=== PATIENT | male | born 1995 | race Hispanic/Latino ===

== ENCOUNTER 2018-11-19 11:59 | Emergency (ER) | payer OTHER, SELFPAY ==
[2018-11-19 12:13] VITALS: BP 115/83; PULSE 99; RESP 18; TEMP 37.2; O2SAT 96; BMI 29.8
--- NOTE | 2018-11-19 12:14 | ED.LOWEXIN ---
HPI - Extremity Injury (Lower) <NIKI Redd - Last Filed: 11/19/18 21:59> General Chief Complaint: Extremity Injury, Lower Stated Complaint: STABBED FT WITH MEDAL WHILE RUNNING Time Seen by Provider: 11/19/18 12:14 Source: patient Mode of arrival: ambulatory Limitations: no limitations History of Present Illness HPI Narrative: 23-year-old healthy male that is a nonsmoker here for complaint of puncture wound to his right foot. He states that he was running earlier today when he stepped on a plane a piece of metal that punctured the bottom of his shoe going into the ball of his right foot plantar aspect. He states he came in to get his tetanus updated. He does not believe that there are any foreign bodies to the area. He pulled the metal out and cleaned the wound well prior to arrival. Incident happened just prior to arrival. He is ambulatory into the emergency room. He does not know exactly when his last tetanus was. No other concerns or complaints at this timeframe. MD complaint: foot injury Related Data Previous Rx's Medication Instructions Recorded cephalexin 500 mg PO QID #20 tab 11/19/18 levofloxacin 500 mg PO DAILY #5 tab 11/19/18 Allergies Allergy/AdvReac Type Severity Reaction Status Date / Time No Known Drug Allergies Allergy Verified 11/19/18 12:16 Review of Systems <NIKI Redd - Last Filed: 11/19/18 21:59> Constitutional Denies chills, Denies fever(s), Denies lethargy and Denies weakness Eyes Denies change in vision, Denies eye discharge, Denies irritation and Denies loss of vision ENT Ears, Nose, Mouth, and Throat: Denies change in voice, Denies neck pain and Denies sore throat Cardiovascular Denies chest pain, Denies irregular heart rhythm, Denies lightheadedness, Denies palpitations, Denies dyspnea, Denies dyspnea on exertion and Denies orthopnea Respiratory Denies cough, Denies dyspnea, Denies dyspnea on exertion and Denies wheezing Gastrointestinal Gastrointestinal: Denies abdominal pain, Denies change in bowel habits, Denies diarrhea, Denies nausea and Denies vomiting Genitourinary Denies hematuria, Denies flank pain, Denies urinary incontinence and Denies urinary urgency Musculoskeletal Denies neck pain Comments: Puncture wound to right foot Integumentary/Breasts Denies pruritus, Denies erythema, Denies rash and Denies wounds Neurologic Denies confusion, Denies loss of vision and Denies weakness Psychiatric Denies anxiety, Denies confusion, Denies depression, Denies homicidal ideation and Denies suicidal ideation Endocrine Denies palpitations Allergic/Immunologic Denies wheezing PFSH <NIKI Redd - Last Filed: 11/19/18 21:59> Social History Smoking Status: Current some day smoker Social History Smoking Status: Current some day smoker Exam <NIKI Redd - Last Filed: 11/19/18 21:59> Initial Vital Signs Initial Vital Signs: Vital Signs Temperature 99.0 F 11/19/18 12:13 Pulse Rate 99 H 11/19/18 12:13 Respiratory Rate 18 11/19/18 12:13 Blood Pressure 115/83 11/19/18 12:13 Pulse Oximetry 96 11/19/18 12:13 Const General: cooperative and well developed Nutritional Appearance: well nourished Orientation: alert, awake, oriented x3 and not confused [facility] Mouth: oral mucosae normal and moist mucous membranes Eyes Conjunctivae: conjunctivae normal Sclera: sclerae normal Pupils: PERRL EOM: EOM intact bilaterally Resp Effort & Inspection: normal respiratory effort, able to speak in complete sentences, no respiratory distress and no use of accessory muscles Auscultation: clear to auscultation bilaterally, no rales, no rhonchi and no wheezes Cardio Rate: regular rate Rhythm: regular rhythm Heart Sounds: no click, no gallops, no murmurs and no rubs Skin General: no rashes or lesions noted, No jaundice and No petechiae Neuro General: alert, oriented x3, gait normal and no focal motor deficits Speech: speech normal Extrem Other: 5 mm puncture wound to the ball of the right foot. Distal sensation is intact. Distal cap refill is intact. Full range of motion. No foreign bodies is appreciated on exam. <Thang Matute DO - Last Filed: 11/20/18 07:23> Initial Vital Signs Initial Vital Signs: Vital Signs Temperature 99.0 F 11/19/18 12:13 Pulse Rate 99 H 11/19/18 12:13 Respiratory Rate 18 11/19/18 12:13 Blood Pressure 115/83 11/19/18 12:13 Pulse Oximetry 96 11/19/18 12:13 Course <NIKI Redd - Last Filed: 11/19/18 21:59> Orders Ordered: Discontinued Medications Diphtheria/Tetanus/Acell Pertussis (Adacel) 0.5 ml IM .ONCE ONE Stop: 11/19/18 12:14 Last Admin: 11/19/18 12:19 Dose: 0.5 ml Vital Signs - 8 hr 11/19/18 12:13 Temperature 99.0 F Pulse Rate 99 H Respiratory Rate 18 Blood Pressure 115/83 Pulse Oximetry 96 <Thang Matute DO - Last Filed: 11/20/18 07:23> Orders Ordered: Discontinued Medications Diphtheria/Tetanus/Acell Pertussis (Adacel) 0.5 ml IM .ONCE ONE Stop: 11/19/18 12:14 Last Admin: 11/19/18 12:19 Dose: 0.5 ml Vital Signs - 8 hr 11/19/18 12:13 Temperature 99.0 F Pulse Rate 99 H Respiratory Rate 18 Blood Pressure 115/83 Pulse Oximetry 96 MDM - Extremity Injury (Lower) <NIKI Redd - Last Filed: 11/19/18 21:59> Imaging Data R foot: Radiologist's impression: [place] [address] XRay Report Signed Patient: [facility]#: [id number] : 1995Acct:[id number] Age/Sex: 23 / MDate of Service: 11/19/18 Loc: ED Accession Number: [id number] Procedure: XR foot RT min 3V Ordering Provider: Bon Garcia PROCEDURE: XR FOOT RT MIN 3V INDICATIONS: Through the shoe puncture wound to right ft TECHNIQUE: 3 views of the foot were acquired. COMPARISON: None. FINDINGS: Bones: No fractures or dislocations. No suspicious bony lesions. Soft tissues: No tibiotalar joint effusion. Achilles tendon appears normal. No radiodense foreign bodies. IMPRESSION: No fracture. No osseous lesion. If symptoms and/or clinical suspicion for pathology persists, further assessment with repeat radiographs (7-10 days) or advanced imaging (e.g. CT, MRI or bone scan) may be helpful. Dictated by: Sapna Zapata MD, PhD on 11/19/2018 at 12:52 Approved by: Sapna Zapata MD, PhD on 11/19/2018 at 12:53 [facility] Narrative Medical decision making narrative: X-ray the right foot was obtained and was negative for any osseous findings or any foreign bodies. Tetanus was updated in the emergency room. Wound area was cleansed well with soap and water. Wound dressed with bacitracin and a dressing. Due to puncture wound through shoe will treat empirically to prevent infection including Pseudomonas with cephalexin and also Levaquin. [id number] Tylenol or Motrin as needed for any discomfort. Follow up with primary care provider. Return emergency room for any worsening symptoms. Discharge Plan Departure Patient Disposition: Home Clinical Impression: Puncture wound of foot Qualifiers: Encounter type: initial encounter Laterality: right Qualified Code(s): S91.331A - Puncture wound without foreign body, right foot, initial encounter Discharge Date/Time: 11/19/18 13:16 Interventions: ED Discharge Assessment Last Done: 11/19/18 13:15 Instructions: DI for Puncture Wound Activity Restrictions/Additional Instructions: tetanus was updated in the emergency room today. X-ray the right foot was obtained was negative for any acute findings. Dress wound daily with bacitracin dressing until healed. Use [id number] Tylenol or Motrin as needed for any discomfort. you are placed on antibiotics to prevent infection due to the puncture wound use as directed. Follow up with primary care provider. For any worsening symptoms or signs of infection return to the emergency room. Prescriptions: New cephalexin 500 mg tablet 500 mg PO QID Qty: 20 RF: 0 levofloxacin 500 mg tablet 500 mg PO DAILY Qty: 5 RF: 0 Referrals: Cara Valerio MD [Primary Care Provider] - <Thang Matute DO - Last Filed: 11/20/18 07:23> Cosign ED Attending Nury Attestation: I was immediately available in the department for consultation. Documentation has been reviewed. I agree with assessment and plan.
--- NOTE | 2018-11-19 12:18 | ED_ITS ---
HPI - Extremity Injury (Lower) <NIKI Redd - Last Filed: 11/19/18 21:59> General Chief Complaint: Extremity Injury, Lower Stated Complaint: STABBED FT WITH MEDAL WHILE RUNNING Time Seen by Provider: 11/19/18 12:14 Source: patient Mode of arrival: ambulatory Limitations: no limitations History of Present Illness HPI Narrative: 23-year-old healthy male that is a nonsmoker here for complaint of puncture wound to his right foot. He states that he was running earlier today when he stepped on a plane a piece of metal that punctured the bottom of his shoe going into the ball of his right foot plantar aspect. He states he came in to get his tetanus updated. He does not believe that there are any foreign bodies to the area. He pulled the metal out and cleaned the wound well prior to arrival. Incident happened just prior to arrival. He is ambulatory into the emergency room. He does not know exactly when his last tetanus was. No other concerns or complaints at this timeframe. MD complaint: foot injury Related Data Previous Rx's Medication Instructions Recorded cephalexin 500 mg PO QID #20 tab 11/19/18 levofloxacin 500 mg PO DAILY #5 tab 11/19/18 Allergies Allergy/AdvReac Type Severity Reaction Status Date / Time No Known Drug Allergies Allergy Verified 11/19/18 12:16 Review of Systems <NIKI Redd - Last Filed: 11/19/18 21:59> Constitutional Denies chills, Denies fever(s), Denies lethargy and Denies weakness Eyes Denies change in vision, Denies eye discharge, Denies irritation and Denies loss of vision ENT Ears, Nose, Mouth, and Throat: Denies change in voice, Denies neck pain and Denies sore throat Cardiovascular Denies chest pain, Denies irregular heart rhythm, Denies lightheadedness, Denies palpitations, Denies dyspnea, Denies dyspnea on exertion and Denies orthopnea Respiratory Denies cough, Denies dyspnea, Denies dyspnea on exertion and Denies wheezing Gastrointestinal Gastrointestinal: Denies abdominal pain, Denies change in bowel habits, Denies diarrhea, Denies nausea and Denies vomiting Genitourinary Denies hematuria, Denies flank pain, Denies urinary incontinence and Denies urinary urgency Musculoskeletal Denies neck pain Comments: Puncture wound to right foot Integumentary/Breasts Denies pruritus, Denies erythema, Denies rash and Denies wounds Neurologic Denies confusion, Denies loss of vision and Denies weakness Psychiatric Denies anxiety, Denies confusion, Denies depression, Denies homicidal ideation and Denies suicidal ideation Endocrine Denies palpitations Allergic/Immunologic Denies wheezing PFSH <NIKI Redd - Last Filed: 11/19/18 21:59> Social History Smoking Status: Current some day smoker Social History Smoking Status: Current some day smoker Exam <NIKI Redd - Last Filed: 11/19/18 21:59> Initial Vital Signs Initial Vital Signs: Vital Signs Temperature 99.0 F 11/19/18 12:13 Pulse Rate 99 H 11/19/18 12:13 Respiratory Rate 18 11/19/18 12:13 Blood Pressure 115/83 11/19/18 12:13 Pulse Oximetry 96 11/19/18 12:13 Const General: cooperative and well developed Nutritional Appearance: well nourished Orientation: alert, awake, oriented x3 and not confused [facility] Mouth: oral mucosae normal and moist mucous membranes Eyes Conjunctivae: conjunctivae normal Sclera: sclerae normal Pupils: PERRL EOM: EOM intact bilaterally Resp Effort & Inspection: normal respiratory effort, able to speak in complete sentences, no respiratory distress and no use of accessory muscles Auscultation: clear to auscultation bilaterally, no rales, no rhonchi and no wh eezes Cardio Rate: regular rate Rhythm: regular rhythm Heart Sounds: no click, no gallops, no murmurs and no rubs Skin General: no rashes or lesions noted, No jaundice and No petechiae Neuro General: alert, oriented x3, gait normal and no focal motor deficits Speech: speech normal Extrem Other: 5 mm puncture wound to the ball of the right foot. Distal sensation is intact. Distal cap refill is intact. Full range of motion. No foreign bodies is appreciated on exam. <Thang Matute DO - Last Filed: 11/20/18 07:23> Initial Vital Signs Initial Vital Signs: Vital Signs Temperature 99.0 F 11/19/18 12:13 Pulse Rate 99 H 11/19/18 12:13 Respiratory Rate 18 11/19/18 12:13 Blood Pressure 115/83 11/19/18 12:13 Pulse Oximetry 96 11/19/18 12:13 Course <NIKI Redd - Last Filed: 11/19/18 21:59> Orders Ordered: Discontinued Medications Diphtheria/Tetanus/Acell Pertussis (Adacel) 0.5 ml IM .ONCE ONE Stop: 11/19/18 12:14 Last Admin: 11/19/18 12:19 Dose: 0.5 ml Vital Signs - 8 hr 11/19/18 12:13 Temperature 99.0 F Pulse Rate 99 H Respiratory Rate 18 Blood Pressure 115/83 Pulse Oximetry 96 <Thang Matute DO - Last Filed: 11/20/18 07:23> Orders Ordered: Discontinued Medications Diphtheria/Tetanus/Acell Pertussis (Adacel) 0.5 ml IM .ONCE ONE Stop: 11/19/18 12:14 Last Admin: 11/19/18 12:19 Dose: 0.5 ml Vital Signs - 8 hr 11/19/18 12:13 Temperature 99.0 F Pulse Rate 99 H Respiratory Rate 18 Blood Pressure 115/83 Pulse Oximetry 96 MDM - Extremity Injury (Lower) <NIKI Redd - Last Filed: 11/19/18 21:59> Imaging Data R foot: Radiologist's impression: [place] [address] XRay Report Signed Patient: [facility]#: [id number] : 1995Acct:[id number] Age/Sex: 23 / MDate of Service: 11/19/18 Loc: ED Accession Number: [id number] Procedure: XR foot RT min 3V Ordering Provider: Bon Garcia PROCEDURE: XR FOOT RT MIN 3V INDICATIONS: Through the shoe puncture wound to right ft TECHNIQUE: 3 views of the foot were acquired. COMPARISON: None. FINDINGS: Bones: No fractures or dislocations. No suspicious bony lesions. Soft tissues: No tibiotalar joint effusion. Achilles tendon appears normal. No radiodense foreign bodies. IMPRESSION: No fracture. No osseous lesion. If symptoms and/or clinical suspicion for pathology persists, further assessment with repeat radiographs (7-10 days) or advanced imaging (e.g. CT, MRI or bone scan) may be helpful. Dictated by: Sapna Zapata MD, PhD on 11/19/2018 at 12:52 Approved by: Sapna Zapata MD, PhD on 11/19/2018 at 12:53 [facility] Narrative Medical decision making narrative: X-ray the right foot was obtained and was negative for any osseous findings or any foreign bodies. Tetanus was updated in the emergency room. Wound area was cleansed well with soap and water. Wound dressed with bacitracin and a dressing. Due to puncture wound through shoe will treat empirically to prevent infection including Pseudomonas with cephalexin and also Levaquin. [id number] Tylenol or Motrin as needed for any discomfort. Follow up with primary care provider. Return emergency room for any worsening symptoms. Discharge Plan Departure Patient Disposition: Home Clinical Impression: Puncture wound of foot Qualifiers: Encounter type: initial encounter Laterality: right Qualified Code(s): S91.331A - Puncture wound without foreign body, right foot, initial encounter Discharge Date/Time: 11/19/18 13:16 Interventions: ED Discharge Assessment Last Done: 11/19/18 13:15 Instructions: DI for Puncture Wound Activity Restrictions/Additional Instructions: tetanus was updated in the emergency room today. X-ray the right foot was obtained was negative for any acute findings. Dress wound daily with bacitracin dressing until healed. Use [id number] Tylenol or Motrin as needed for any discomfort. you are placed on antibiotics to prevent infection due to the puncture wound use as directed. Follow up with primary care provider. For any worsening symptoms or signs of infection return to the emergency room. Prescriptions: New cephalexin 500 mg tablet 500 mg PO QID Qty: 20 RF: 0 levofloxacin 500 mg tablet 500 mg PO DAILY Qty: 5 RF: 0 Referrals: Cara Valerio MD [Primary Care Provider] - <Thang Matute DO - Last Filed: 11/20/18 07:23> Cosign ED Attending Nury Attestation: I was immediately available in the department for consultation. Documentation has been reviewed. I agree with assessment and plan.
[2018-11-19] MEDS: TET,DIPH,PERTUSS(ACELL),VAC/PF 0.5 ML SYRINGE IM (12:19)
--- NOTE | 2018-11-19 12:22 | DI.RAD.S_ITS ---
PROCEDURE: XR FOOT RT MIN 3V INDICATIONS: Through the shoe puncture wound to right ft TECHNIQUE: 3 views of the foot were acquired. COMPARISON: None. FINDINGS: Bones: No fractures or dislocations. No suspicious bony lesions. Soft tissues: No tibiotalar joint effusion. Achilles tendon appears normal. No radiodense foreign bodies. IMPRESSION: No fracture. No osseous lesion. If symptoms and/or clinical suspicion for pathology persists, further assessment with repeat radiographs (7-10 days) or advanced imaging (e.g. CT, MRI or bone scan) may be helpful. Dictated by: Sapna Zapata MD, PhD on 11/19/2018 at 12:52 Approved by: Sapna Zapata MD, PhD on 11/19/2018 at 12:53
[2018-11-19 13:15] VITALS: BP 116/82; PULSE 74; RESP 18; O2SAT 96
== END 2018-11-19 13:16 | disposition home or self-care (01) ==
PROVIDERS: Emergency Provider Nurse Practitioner Family; PCP Family Medicine
DX: S91.331A Puncture wound without foreign body, right foot, initial encounter (principal); Y93.02 Activity, running
CPT/HCPCS: 73630; 90471; 99282; 99283; 90715